=== PATIENT | male | born 1935 | race Hispanic/Latino ===

== ENCOUNTER → 2018-02-08 | Outpatient (CLI) | payer OTHER ==
[~2018-02-08] MED LIST: ASPI-1197 PO; ATOR20TA65 PO; CLOP75TA32 PO; LISI-617 PO; METO50TA18 PO; OSCD250 PO
== END | disposition home or self-care (01) ==
LOC: SHCH 12:54
PROVIDERS: ATTEND Internal Medicine Cardiovascular Disease
DX: I25.10 Atherosclerotic heart disease of native coronary artery without angina pectoris (principal); Z95.0 Presence of cardiac pacemaker
CPT/HCPCS: 93306

== ENCOUNTER → 2018-10-15 | Outpatient (CLI) | payer OTHER | END | disposition home or self-care (01) | LOC: SHCH 09:25 | PROVIDERS: ATTEND Internal Medicine Cardiovascular Disease | DX: I65.23 Occlusion and stenosis of bilateral carotid arteries (principal) | CPT/HCPCS: 93880 ==

== ENCOUNTER → 2020-05-20 | Outpatient (CLI) | payer OTHER | END | disposition home or self-care (01) | LOC: SHCH 11:07 | PROVIDERS: ATTEND Internal Medicine Cardiovascular Disease | DX: I65.29 Occlusion and stenosis of unspecified carotid artery (principal); I25.10 Atherosclerotic heart disease of native coronary artery without angina pectoris | CPT/HCPCS: 93880 ==

== ENCOUNTER → 2023-12-10 | Outpatient (CLI) | payer MEDICARE ==
[~2023-12-10] MED LIST changes: -LISI-617 PO; +LISI5TAB21 PO
[2023-12-10 16:32] LABS: ALBUMIN 3.8 g/dL (3.5-5.0); CREATININE 1.1 mg/dL (0.5-1.3); POTASSIUM 4.5 mmol/L (3.5-5.1); TOTAL PROTEIN, SERUM 7.2 g/dL (6.0-8.3)
== END | disposition home or self-care (01) ==
LOC: LAB 11:41
PROVIDERS: ATTEND Internal Medicine Cardiovascular Disease
DX: I65.29 Occlusion and stenosis of unspecified carotid artery (principal)
CPT/HCPCS: 36415; 80053

== ENCOUNTER → 2023-12-21 | Outpatient (CLI) | payer MEDICARE ==
[~2023-12-21] MED LIST changes: +IOHEXOL-350 75 ML VIAL IV ONE
== END | disposition home or self-care (01) ==
LOC: RAH 09:10
PROVIDERS: ATTEND Internal Medicine Cardiovascular Disease
DX: I65.23 Occlusion and stenosis of bilateral carotid arteries (principal); I25.10 Atherosclerotic heart disease of native coronary artery without angina pectoris
CPT/HCPCS: 70496; 70498; Q9967

== ENCOUNTER → 2024-04-22 | Outpatient (CLI) | payer MEDICARE ==
[~2024-04-22] MED LIST changes: -IOHEXOL-350 75 ML VIAL IV ONE
== END | disposition home or self-care (01) ==
LOC: SHCH 10:57
PROVIDERS: ATTEND Internal Medicine Cardiovascular Disease
DX: I08.8 Other rheumatic multiple valve diseases (principal); I11.0 Hypertensive heart disease with heart failure; I65.22 Occlusion and stenosis of left carotid artery; R07.9 Chest pain, unspecified; I50.22 Chronic systolic (congestive) heart failure; E78.5 Hyperlipidemia, unspecified; Z95.1 Presence of aortocoronary bypass graft; Z95.810 Presence of automatic (implantable) cardiac defibrillator
CPT/HCPCS: 93306; 93880

== ENCOUNTER 2025-06-15 05:41 | Day surgery (SDC) | payer MEDICARE ==
--- NOTE | 2025-06-11 08:56 | EKG ---
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
[2025-06-11 08:59] LABS: IMMATURE GRANULOCYTE ABSOLUTE 0.01 K/uL (0-1); NUCLEATED RED BLOOD CELLS 0.0 % (0.0-0.19); PLATELET COUNT (AUTO) 146 K/uL (130-400); RED BLOOD CELL COUNT(AUTO) 4.61 MIL/uL (4.50-6.20); RED CELL DISTRIBUTION WIDTH 12.5 % (11.0-15.5); WHITE BLOOD COUNT (AUTO) 6.3 K/uL (4.8-10.8)
[2025-06-11 09:08] LABS: CREATININE 1.2 mg/dL (0.5-1.3); GLOMERULAR FILTR. RATE CALC 58.0 mL/min (>90); GLUCOSE,RANDOM 94.0 mg/dL (70-105); SODIUM SERUM 140.0 mmol/L (136-145); UREA NITROGEN, BLOOD 24.0 mg/dL (7-18)
[2025-06-11 09:10] VITALS: BP 155/93; PULSE 60; RESP 13; TEMP 97.3
[2025-06-11 09:11] LABS: INR 1.11 (0.85-1.15)
[~2025-06-15] VITALS: Ht 162.6 cm; Wt 63.8 kg
[2025-06-15] VITALS (7 sets, daily range): BP systolic 126–157; BP diastolic 58–75; PULSE 60–68; RESP 13–15; TEMP 97.3–97.8
[~2025-06-15 05:41] MED LIST changes: +AREDS PRESERVISION PO; +CALC-877 PO; -CLOP75TA32 PO; +METO25TA6 PO; -METO50TA18 PO; -OSCD250 PO; +PRED5DRO25 OP
--- NOTE | 2025-06-15 06:30 | NUR ---
DR. BOUDREAUX MADE AWARE OF NO H&P IN CHART OR WINX
[2025-06-15] MEDS ORDERED: 0.9%NACL 1000ML 1,000 ML IV SCH (07:00)
[2025-06-15] MEDS ORDERED: LIDOCAINE HCL 1% MDV 50ML VIAL ONE (07:13)
[2025-06-15] MEDS ORDERED: SODIUM BICARB 50MEQ 50ML VIAL 50 ML ONE (07:13)
[2025-06-15] MEDS ORDERED: MIDAZOLAM HCL 1 MG/ML 2ML VIAL ONE ×2 (07:37→07:45)
[2025-06-15] MEDS ORDERED: BACITRACIN 1 EACH PACKET TP ONE (08:31)
[2025-06-15] MEDS ORDERED: TRAM50TA4 PO (08:39)
--- NOTE | 2025-06-15 09:06 | NUR ---
PT ARRIVED TO DAY ROOM 8 VSS NAD LEFT CHEST ASYMPTOMATIC
--- NOTE | 2025-06-15 09:50 | NUR ---
LEFT CHEST SITE ASYMPTOMATIC
--- NOTE | 2025-06-15 10:21 | NUR ---
WENT INTO ROOM TO DISCHARGE PT FAMILY NOT PRESENT, PT STATES HIS WENT TO A DOCTORS APPOINTMENT AND WILL RETURN WITH SON. I TOLD PT TO WAIT IN ROOM UNTIL FAMILY ARRIVES SO I CAN SPEAK WITH BOTH PT AND FAMILY. PT INSTRUCTED TO PRESS CALL LIGHT WHEN FAMILY ARRIVES.
--- NOTE | 2025-06-15 12:48 | NUR ---
I HAVE ATTEMPTED TO CALL PHONE NUMBER FOR PATIENTS SEVERAL TIMES PHONE KEEPS GOING STRAIGHT TO [facility]. I ASKED THE PATIENT IF HE CAN CALL HIS SON OR OTHER FAMILY TO PICK HIM UP AND GIVE THEM INSTRUCTIONS. PT GIVEN LUNCH TRAY
== END 2025-06-15 13:30 | disposition home or self-care (01) ==
LOC: DAH 05:41
PROVIDERS: ATTEND Internal Medicine Cardiovascular Disease
DX: Z45.02 Encounter for adjustment and management of automatic implantable cardiac defibrillator (principal); I25.5 Ischemic cardiomyopathy; I25.10 Atherosclerotic heart disease of native coronary artery without angina pectoris; I10 Essential (primary) hypertension; E78.5 Hyperlipidemia, unspecified; Z79.01 Long term (current) use of anticoagulants; Z82.3 Family history of stroke; Z79.899 Other long term (current) drug therapy; Z98.890 Other specified postprocedural states
CPT/HCPCS: 80048; 85025; 85610; 85730; 36415; 93005; 33264; 99156; 99157 ×3; A4223 ×3; C1882; J3010; J0690; J0665; J3490 ×2; J2250; A4215; A6251; A4222; A4221; A4663; A4216; A6258; A4606